=== PATIENT | male | born 2000 | race Caucasian/White ===

== ENCOUNTER 2022-10-11 23:27 | Inpatient (IN) | payer OTHER ==
[~2022-10-11] VITALS: Ht 177.8 cm; Wt 58.6 kg
[2022-10-11 23:33] VITALS: BP 125/65
[2022-10-11] MEDS ORDERED: OMEPRAZOLE40 MG PO (23:34)
[2022-10-11 23:54] LABS: BASO % 0.2 % (0.0-1.0); EOS # 0.1 10*3/uL (0.0-0.4); EOS % 0.8 % (1.0-4.0); HEMATOCRIT 43.9 % (42.0-52.0); LYMPH # 0.4 10*3/uL (1.3-4.4); LYMPH % 4.8 % (27.0-41.0); MEAN CELL VOLUME 73.3 fl (80.0-94.0); MEAN CORPUSCULAR HGB 24.4 pg (27.0-31.0); MEAN CORPUSCULAR HGB CONC 33.3 g/dl (33.0-37.0); MEAN PLATELET VOLUME 10.3 fl (9.6-12.3); MONO # 1.1 10*3/uL (0.1-1.0); MONO % 12.6 % (3.0-9.0); NEUT # 6.9 10*3/uL (2.3-7.9); NEUT % 81.4 % (47.0-73.0); PLATELET COUNT AUTOMATED 317 10*3/uL (130-400); RED BLOOD COUNT 5.99 10*6/uL (4.50-5.90); RED CELL DISTRI WIDTH 14.8 % (0-14.5); WHITE BLOOD COUNT 8.5 10*3/uL (4.8-10.8)
[2022-10-12 00:05] LABS: ACT PARTIAL THROMBO TIME 29.1 SECONDS (20.0-32.1); INTERNATIONAL NORM RATIO 1.1 (2.0-3.5)
[2022-10-12 00:17] LABS: ALKALINE PHOSPHATASE 59 U/L (46-116); BUN 10 mg/dl (9-23); CHLORIDE 101 mmol/L (98-107); LIPASE 38 U/L (12-53); POTASSIUM 3.7 mmol/L (3.4-5.1); SGPT/ALT 15 U/L (10-49)
[2022-10-12 00:17] LABS: BILIRUBIN Negative (Negative); BLOOD Negative (Negative); CLARITY Clear (Clear); COLOR Yellow (Yellow); GLUCOSE Negative (Negative); KETONE 1+ (Negative); LEUKO ESTERASE Negative (Negative); NITRITE Negative (Negative); SPECIFIC GRAVITY 1.025 (1.001-1.030)
[2022-10-12 00:27] LABS: FINE GRANULAR CAST 0-2; MUCOUS 2+; RBC 0-2 rbc/hpf (0-2)
[2022-10-12 05:48] VITALS: BP 104/55
[2022-10-12 07:41] VITALS: BP 106/57
[2022-10-12 08:00] VITALS: BP 118/62
[2022-10-12 12:00] VITALS: BP 100/57
[2022-10-12 16:00] VITALS: BP 107/67
[2022-10-12 20:00] VITALS: BP 118/73
[2022-10-13] VITALS: BP 112/66
[2022-10-13 06:43] LABS: BASO % 0.3 % (0.0-1.0); EOS # 0.4 10*3/uL (0.0-0.4); EOS % 6.3 % (1.0-4.0); HEMATOCRIT 35.9 % (42.0-52.0); LYMPH # 0.4 10*3/uL (1.3-4.4); LYMPH % 6.1 % (27.0-41.0); MEAN CORPUSCULAR HGB CONC 31.2 g/dl (33.0-37.0); MEAN PLATELET VOLUME 10.1 fl (9.6-12.3); MONO # 0.9 10*3/uL (0.1-1.0); MONO % 14.4 % (3.0-9.0); NEUT # 4.7 10*3/uL (2.3-7.9); NEUT % 72.4 % (47.0-73.0); PLATELET COUNT AUTOMATED 225 10*3/uL (130-400); RED BLOOD COUNT 4.67 10*6/uL (4.50-5.90); WHITE BLOOD COUNT 6.5 10*3/uL (4.8-10.8)
[2022-10-13 07:09] LABS: ALKALINE PHOSPHATASE 46 U/L (46-116); BUN 5 mg/dl (9-23); CHLORIDE 106 mmol/L (98-107); FREE T4 1.29 ng/dl (0.89-1.76); SGPT/ALT 10 U/L (10-49); TOTAL PROTEIN 5.5 gm/dL (6.0-8.0)
[2022-10-13 07:21] LABS: MEAN CELL VOLUME 76.9 fl (80.0-94.0)
[2022-10-13 08:00] VITALS: BP 111/63
[2022-10-13 11:30] VITALS: BP 104/80
[2022-10-13] MEDS ORDERED: LEVOFLOXACIN750 M2 PO (16:17)
[2022-10-13] MEDS ORDERED: METRONIDAZOLE500 M1 PO (16:17)
== END 2022-10-13 18:23 | disposition home or self-care (01) | DRG 871 ==
LOC: ED 23:27 → 5E 10-12 01:43 → EDHOLD 10-12 01:43 → 5E 10-12 07:27
PROVIDERS: Internal Medicine; Student in an Organized Health Care Education/Training Program; ADMIT Internal Medicine; ATTEND Internal Medicine
PROC: 0D9670Z Drainage of Stomach with Drainage Device, Via Natural or Artificial Opening (ICD-10-PCS; principal; 2022-10-12)
DX: A41.9 Sepsis, unspecified organism (principal); J69.0 Pneumonitis due to inhalation of food and vomit; K56.609 Unspecified intestinal obstruction, unspecified as to partial versus complete obstruction; R80.9 Proteinuria, unspecified; R59.0 Localized enlarged lymph nodes; F10.90 Alcohol use, unspecified, uncomplicated; R73.9 Hyperglycemia, unspecified; K80.20 Calculus of gallbladder without cholecystitis without obstruction; Z79.899 Other long term (current) drug therapy; Z82.61 Family history of arthritis